=== PATIENT | male | born 1980 | race Caucasian/White ===

== ENCOUNTER 2025-06-27 00:34 | Day surgery (SDC) | payer OTHER, SELFPAY ==
[2025-06-15 12:07] VITALS: BMI 23.6
[2025-06-27 07:17] VITALS: BP 130/87; PULSE 60; RESP 20; TEMP 36.1; O2SAT 100; BMI 23.7
[2025-06-27] MEDS: LACTATED RINGERS 1,000 ML 150 ML IV CONT (07:26)
--- NOTE | 2025-06-27 07:30 | P.PNAN_ITS ---
Anes - Initial Pre Proc Eval Procedure: Operation Date: 06/27/25 08:30 Proposed Procedures p Screening Colonoscopy - Bandar Fernandes MD Date/Time: 06/27/25 07:30 Surgeon: Bandar Fernandes MD Pre Op Diagnosis: Screening Patient Data Age: 44 Gender: M Height: 1.75 m Weight: 72.8 kg Last Vital Signs Temp 97 F L 06/27/25 07:17 Pulse 60 06/27/25 07:17 Resp 20 06/27/25 07:17 BP 130/87 06/27/25 07:17 Pulse Ox 100 06/27/25 07:17 O2 Del Method Room Air 06/27/25 07:17 Allergies Allergy/AdvReac Type Severity Reaction Status Date / Time No Known Allergies Allergy Verified 06/27/25 07:16 Home Medications ?Medication ?Instructions ?Recorded ?Confirmed ?Type lisinopril 20 mg tablet 20 mg PO DAILY #90 tabs 02/26/25 06/27/25 Rx Patient hx anesthesia problems: none Family hx anesthesia problems: none Results Review: All pre-operative results and documents have been reviewed as part of the pre- operative evaluation. [facility] Past Medical History Medical History Pure hypercholesterolemia, unspecified Essential (primary) hypertension Family History Family History Mother Pancreatic cancer Hypertension Father Hypertension Grandparent Carcinoma of colon Heart disease Cerebrovascular accident Grandparent Carcinoma of colon Sibling Hypertension Social History Social History Smoking status: Former smoker Alcohol intake: current Drinks per week: 20 Substance use: never Education: High School Diploma/GED Living arrangements: with family Additional living arrangements comments: Lives with his and 2 daughters Occupation/Education: occupation 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 Informed Consent: The patient's anesthetic plan and its attendant risks and benefits were discussed with the patient/family/POA. Questions were solicited and answers provided to the satisfaction of the patient/family/POA.
--- NOTE | 2025-06-27 08:31 | P.HP_ITS ---
History of Present Illness History of Present Illness Consent: Risks, benefits, and alternatives have been discussed and questions answered. Patient agrees to proceed with procedure. Chief complaint: Screening Narrative: Jordy Ovalle is a 44 year old male here for first screening colonoscopy Review of Systems Review of Systems: All systems reviewed & are unremarkable except as noted in HPI and below PMFSH Past Medical History Medical History (Updated 06/27/25 @ 08:32 by Bandar Fernandes MD) Colon cancer screening Pure hypercholesterolemia, unspecified Essential (primary) hypertension Family History Family History Mother Pancreatic cancer Hypertension Father Hypertension Grandparent Carcinoma of colon Heart disease Cerebrovascular accident Grandparent Carcinoma of colon Sibling Hypertension Social History Social History Smoking status: Former smoker Alcohol intake: current Drinks per week: 20 Substance use: never Education: High School Diploma/GED Living arrangements: with family Additional living arrangements comments: Lives with his and 2 daughters Occupation/Education: occupation 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 [employer] Gender identity (if verbalized by the patient): Male Meds Home Medications and Allergies Home Medications ?Medication ?Instructions ?Recorded ?Confirmed ?Type lisinopril 20 mg tablet 20 mg PO DAILY #90 tabs 02/26/25 06/27/25 Rx Allergies Allergy/AdvReac Type Severity Reaction Status Date / Time No Known Allergies Allergy Verified 06/27/25 07:16 Vital Signs Vital Signs - 24 hr 06/27/25 07:17 Temperature 97 F L Pulse Rate 60 Respiratory Rate 20 Blood Pressure 130/87 Pulse Oximetry 100 Oxygen Delivery Room Air Exam Const: General: comfortable and no acute distress HENMT: Face/Nose/Sinus: Normal nares present Eyes: General: appearance normal, both eyes and all related structures Neck: Neck: no JVD Resp: Auscultation: clear to auscultation bilaterally Cardio: Rate: regular rate Rhythm: regular rhythm GI: Inspection: non-distended GI Palp: Yes Soft to palpation Skin: General skin exam: normal color Neuro: Speech: normal speech Extrem: General: normal to inspection Psych: Mental Status: mental status grossly normal Assessment and Plan Assessment and plan (1) Colon cancer screening: Code(s): Z12.11 - Encounter for screening for malignant neoplasm of colon Status: Acute Assessment and Plan: colonoscopy
--- NOTE | 2025-06-27 08:45 | S_PTH ---
PATIENT: Jordy Ovalle LOC: [facility] [place]#:[id number] AGE/SX: 44/M ROOM: RE06/27/[address]: Bandar Fernandes MD : 1980 BED: DIS: 06/27/2025 SPEC #: [id number] RECD: 06/27/25 10:48 STATUS: SHEYLA REQ #: [id number] ELIZABETH: 06/27/25 08:[address]: Bandar Fernandes DEPT: [facility] Surgical RECD BY: Tiffanie Gonzalez ENTERED: 06/27/25 10:48 SP TYPE: Surgical OTHR DR: Shashi Burrell MD Tissues: A - Colon Polypectomy Procedures: Hematoxylin and Eosin Stain Gross and Microscopic Level 4
[2025-06-27 08:48] VITALS: BP 86/58; PULSE 54; RESP 17; O2SAT 98
[2025-06-27 08:58] VITALS: BP 86/54; PULSE 47; RESP 15; O2SAT 98
[2025-06-27 09:08] VITALS: BP 82/58; PULSE 46; RESP 15; O2SAT 98
[2025-06-27 09:18] VITALS: BP 90/60; PULSE 46; RESP 15; O2SAT 98
[2025-06-27 09:22] VITALS: BP 112/76; PULSE 45; RESP 15; O2SAT 99
--- NOTE | 2025-06-27 09:35 | SUR.PHASEII ---
Pt heart rate sinus bradycardia in PACU, blood pressure stable, pt awake and alert sitting up in bed and asymptomatic. Dr. Merchant (anesthesia) notified states ok for discharge.
== END 2025-06-27 09:28 | disposition home or self-care (01) ==
PROVIDERS: PCP Family Medicine; Referring Provider Family Medicine; Visit Provider Internal Medicine Gastroenterology
PROC: 0DJD8ZZ Inspection of Lower Intestinal Tract, Via Natural or Artificial Opening Endoscopic (ICD-10-PCS; CPT 45378; principal; 2025-06-27 08:30)
DX: Z12.11 Encounter for screening for malignant neoplasm of colon (principal); D12.5 Benign neoplasm of sigmoid colon; K57.30 Diverticulosis of large intestine without perforation or abscess without bleeding; I10 Essential (primary) hypertension; E78.00 Pure hypercholesterolemia, unspecified; Z87.891 Personal history of nicotine dependence; Z80.0 Family history of malignant neoplasm of digestive organs; Z82.49 Family history of ischemic heart disease and other diseases of the circulatory system
CPT/HCPCS: 45385; 88305; J2003; J2704; J7120